=== PATIENT | male | born 1955 | race African-American/Black ===

== ENCOUNTER 2016-10-18 07:55 | Emergency (ER) | payer OTHER, BC ==
[2016-10-18] MEDS ORDERED: KETOROLAC 60 MG/2 ML VIAL IM ONE (10:57)
[2016-10-18] MEDS ORDERED: NOREPINEPHRINE 1 MG/ML 4 ML VIAL IV ONE (10:57)
[2016-10-18] MEDS ORDERED: ORPHENADRINE 60 MG/2 ML AMP ONE (10:58)
== END 2016-10-18 11:19 | disposition home or self-care (01) ==
LOC: ER 07:55
DX: M54.5 Low back pain (principal); R07.81 Pleurodynia; R51 Headache; V43.51XA Car driver injured in collision with sport utility vehicle in traffic accident, initial encounter; Y92.410 Unspecified street and highway as the place of occurrence of the external cause; F17.200 Nicotine dependence, unspecified, uncomplicated; Z79.82 Long term (current) use of aspirin; Z95.2 Presence of prosthetic heart valve; Z95.5 Presence of coronary angioplasty implant and graft
CPT/HCPCS: 70450; 70486; 71111; 72100; 96372